=== PATIENT | male | born 1975 | race Caucasian/White ===

== ENCOUNTER 2017-03-05 23:12 | Emergency (ER) | payer OTHER ==
[~2017-03-05] VITALS: Ht 182.9 cm; Wt 88.0 kg
[2017-03-05 23:17] VITALS: BP 119/81; PULSE 96; RESP 20; TEMP 97.9; O2SAT 95
[2017-03-05] MEDS: RESP: ALBUTEROL 2.5 MG/IPRATROPIUM 0.5 MG NEB (SCH) INH (23:58)
[2017-03-05] MEDS ORDERED: VERA1TAB17 PO (23:59)
[2017-03-05] MEDS ORDERED: SPIRCAP INH (23:59)
[2017-03-05] MEDS ORDERED: IMIT50TA PO (23:59)
[2017-03-06] VITALS: O2SAT 96
[2017-03-06] MEDS ORDERED: predniSONE 50 MG TAB PO ONE
[2017-03-06 00:10] VITALS: BP 120/88; PULSE 85; RESP 22; O2SAT 97
--- NOTE | 2017-03-06 00:35 | RADHPO ---
EXAM DATE/TIME: 03/06/2017 00:26 [facility] COMPARISON: No previous studies available for comparison. INDICATIONS : Shortness of breath. MEDICAL HISTORY : None. SURGICAL HISTORY : None. ENCOUNTER: Initial ACUITY: 1 week PAIN SCORE: 0/10 LOCATION: Bilateral chest FINDINGS: A single view of the chest demonstrates the lungs to be symmetrically aerated without evidence of mas s, infiltrate or effusion. The cardiomediastinal contours are unremarkable. Osseous structures are intact. CONCLUSION: No acute disease. David Kennedy MD on March 06, 2017 at 0:33 Board Certified Radiologist. This report was verified electronically.
[2017-03-06 00:50] VITALS: BP 112/66; PULSE 98; RESP 20; O2SAT 97
[2017-03-06] MEDS ORDERED: MEDR4PAK PO ×2 (00:56→01:05)
[2017-03-06] MEDS ORDERED: ALBUAER3 INH ×2 (00:56→01:05)
--- NOTE | 2017-03-06 01:01 | PD ---
HPI Chief Complaint: Respiratory Symptoms Time Seen by Provider: 23:47 Travel History International Travel<30 days: No Contact w/Intl Traveler<30days: No Traveled to known affect area: No History of Present Illness HPI 41-year-old male presents to the emergency department for complaint of shortness of breath and wheezing. Patient has history of COPD. Patient is prescribed Spiriva for chronic management however does not have a rescue inhaler. Patient states his rescue inhaler is empty. Primary care provider did not refill his rescue inhaler. Patient denies fever chills productive cough chest pain palpitations of abdominal pain nausea vomiting referred neck jaw back shoulder arm pain. Patient states he has chronic cough. Patient has been diagnosed with COPD the past several years after multiple years of tobacco use and also chemical exposure and [place]. Patient denies other concerns or complaints. No report of orthopnea PND or peripheral edema also no long distance travel protracted bedrest her surgical procedure. PFSH Past Medical History Narrative Medical Anxiety SVT status post ablation COPD hiatal hernia migraines vasectomy appendectomy occasional alcohol use prior tobacco use; nursing notes reviewed Anxiety: Yes Heart Rhythm Problems: Yes (svts, pt had ablation) High Cholesterol: Yes COPD: Yes Hiatal Hernia: Yes (bilat hernia) Reproductive: Yes (vasectomy) Respiratory: Yes (copd) Migraines: Yes Influenza Vaccination: No Past Surgical History Appendectomy: Yes Social History Alcohol Use: Yes (occ) Tobacco Use: No Substance Use: No Allergies-Medications (Allergen,Severity, Reaction): Coded Allergies: Ephedrine (Verified Allergy, Intermediate, 03/05/17) palpitaions Zomig (Verified Allergy, Intermediate, Flushing, 03/05/17) Reported Meds & Prescriptions Reported Meds & Active Scripts Active Medrol Dosepak (Methylprednisolone) 4 Mg Dspk 4 Mg PO DIRECTED Per Pharmacist direction Proair Hfa 8.5 GM Inh (Albuterol Sulfate) 90 Mcg/Act Aer 2 Puff INH Q4-6H PRN 108 mcg/actuation Reported Imitrex (Sumatriptan Succinate) 50 Mg Tab 50 Mg PO ONCE PRN If a satisfactory response has not been obtained at 2 hours, a second dose may be administered Verapamil ER 24 HR (Verapamil HCl) 240 Mg Tab 240 Mg PO DAILY Spiriva Handihaler (Tiotropium Inh) 18 Mcg Cap 18 Mcg INH BID 1 capsule = 18 mcg Review of Systems Except as stated in HPI: all other systems reviewed are Neg General / Constitutional: No: Fever, Chills HENT: No: Congestion Cardiovascular: No: Chest Pain or Discomfort Respiratory: Positive: Cough, Shortness of Breath, Wheezing, No: Orthopnea, Hemoptysis, Pleuritic Pain Gastrointestinal: No: Nausea, Vomiting, Abdominal Pain Genitourinary: No: Decreased Urinary Output, Flank Pain Musculoskeletal: No: Myalgias, Arthralgias Skin: No Rash Neurologic: No: Weakness Psychiatric: No: Anxiety Hematologic/Lymphatic: No: Easy Bruising Physical Exam Narrative GENERAL: Well-developed well-nourished male in mild respiratory distress no accessory muscle use SKIN: Warm and dry. HEAD: Normocephalic. EYES: No scleral icterus. No injection or drainage. NECK: Supple, trachea midline. No JVD or lymphadenopathy. CARDIOVASCULAR: Regular rate and rhythm without murmurs, gallops, or rubs. RESPIRATORY: Breath sounds equal bilaterally diminished breath sounds with expiratory wheeze mild prolonged I:E ratio. No accessory muscle use. GASTROINTESTINAL: Abdomen soft, non-tender, nondistended. MUSCULOSKELETAL: No cyanosis, or edema. BACK: Nontender without obvious deformity. No CVA tenderness. Data Data Last Documented VS Vital Signs Date Time Temp Pulse Resp B/P Pulse Ox O2 Delivery O2 Flow Rate FiO2 03/06/17 01:17 92 20 116/70 98 03/06/17 00:50 Nasal Cannula 03/05/17 23:17 97.9 Orders Ecg Monitoring (03/05/17 23:51) Oximetry (03/05/17 23:51) Chest, Single Ap (03/05/17 23:51) Albuterol-Ipratropium Neb (Duoneb Neb) (03/06/17 00:00) Prednisone (Deltasone) (03/06/17 00:00) MDM Medical Decision Making Medical Screen Exam Complete: Yes Emergency Medical Condition: Yes Medical Record Reviewed: Yes Interpretation(s) Last Impressions Chest X-Ray 03/05/17 5901 Signed Impressions: Service Date/Time: Monday, March 06, 2017 00:26 - CONCLUSION: No acute disease. David Kennedy MD Vital Signs Date Time Temp Pulse Resp B/P Pulse Ox O2 Delivery O2 Flow Rate FiO2 03/06/17 00:50 98 20 112/66 97 Nasal Cannula 03/06/17 00:10 85 22 120/88 97 Room Air 03/06/17 00:00 96 Room Air 03/05/17 23:44 96 Room Air 03/05/17 23:17 97.9 96 20 119/81 95 Differential Diagnosis Exacerbation COPD, bronchitis, pneumonia, medication refill Narrative Course Patient provided prednisone 50 mg by mouth along with Alek castellanos 3 Chest x-ray reveals no acute process At 12:57 AM lung sounds are clear patient is stable for outpatient management; medication refill for albuterol provided as well as prescription for Medrol Dosepak Diagnosis Primary Impression: COPD exacerbation Additional Impression: Medication refill Referrals: Primary Care Physician call for appointment Patient Instructions: General Instructions Additional Instructions: Follow-up with your primary care provider Return to the emergency department for any concerns or change in condition May use acetaminophen/Tylenol as often as every 4 hours as needed for fever 100.4F or greater or for minor pain Use a rescue inhaler as prescribed as needed for wheezing or shortness of breath Complete course of steroid as prescribed Med/Other Pt SpecificInfo: Prescription(s) given Scripts Methylprednisolone Dosepak (Medrol Dosepak)4 Mg Dspk4 Mg PO DIRECTED #1 DSPK Ref 0 Per Pharmacist direction Prov:Claudia Gonzales MD 03/06/17 Albuterol 8.5 GM Inh (Proair Hfa 8.5 GM Inh)90 Mcg/Act Aer2 Puff INH Q4-6H PRN ( SHORTNESS OF BREATH) #1 INHALER Ref 0 108 mcg/actuation Prov:Claudia Gonzales MD 03/06/17 Disposition: 01 DISCHARGE HOME Condition: Stable Claudia Gonzales MD Mar 06, 2017 01:01
[2017-03-06 01:17] VITALS: BP 116/70
== END 2017-03-06 01:16 | disposition home or self-care (01) ==
LOC: PHED 23:12
DX: J44.1 Chronic obstructive pulmonary disease with (acute) exacerbation (principal); Z76.0 Encounter for issue of repeat prescription; E78.00 Pure hypercholesterolemia, unspecified
CPT/HCPCS: 71010; 94640; 94664; 99283; J7512

== ENCOUNTER 2017-05-27 03:50 | Emergency (ER) | payer OTHER ==
[~2017-05-27] VITALS: Ht 188 cm; Wt 85.3 kg
[~2017-05-27 03:50] MED LIST: ALBUAER3 INH; IMIT50TA PO; MEDR4PAK PO; SPIRCAP INH; VERA1TAB17 PO
[2017-05-27 03:57] VITALS: BP 114/77; PULSE 100; RESP 16; TEMP 98.7; O2SAT 97
[2017-05-27] MEDS ORDERED: SODIUM CHLOR 0.9% 1000 ML INJ 1,000 ML IV SCH (04:27)
[2017-05-27] MEDS ORDERED: SYMB160A INH (04:30)
[2017-05-27] MEDS ORDERED: SODIUM CHLORIDE 0.9% FLUSH 10 ML FLUSH IV FLUSH PRN (04:30)
[2017-05-27] MEDS ORDERED: VENTAER INH (04:30)
[2017-05-27] MEDS ORDERED: TIOT12.9 INH (04:30)
--- NOTE | 2017-05-27 04:31 | PD ---
HPI Chief Complaint: Flank/Kidney Pain Time Seen by Provider: 04:21 Travel History International Travel<30 days: No Contact w/Intl Traveler<30days: No Traveled to known affect area: No History of Present Illness HPI The patient is a 41-year-old male that complains of left flank pain that began at 7:00 yesterday morning. The pain got progressively worse. He describes the pain as sharp and throbbing. When he touches it or moves it can be a 10 over 10 but when he lies still it is only a 4. He denies any fever, nausea or vomiting. He does have a history of kidney stones. PFSH Past Medical History Anxiety: Yes Heart Rhythm Problems: Yes (svts, pt had ablation) High Cholesterol: Yes COPD: Yes Hiatal Hernia: Yes (bilat hernia) Reproductive: Yes (vasectomy) Respiratory: Yes (copd) Migraines: Yes Influenza Vaccination: No Past Surgical History Appendectomy: Yes Social History Alcohol Use: Yes (occ) Tobacco Use: No (vaporizer) Substance Use: No Allergies-Medications (Allergen,Severity, Reaction): Coded Allergies: Ephedrine (Verified Allergy, Intermediate, 05/27/17) palpitaions Zomig (Verified Allergy, Intermediate, Flushing, 05/27/17) Reported Meds & Prescriptions Reported Meds & Active Scripts Active Reported Symbicort Inh (Budesonide/Formoterol Fumarate) 160-4.5 Mcg/Act Aero 2 Puff INH DAILY Ventolin Hfa 18 GM Inh (Albuterol Sulfate) 90 Mcg/Act Aer 1 Puff INH Q4H PRN Spiriva Respimat Inh (Tiotropium Inh) 2.5 Mcg/Act Aero 2 Puff INH DAILY 2.5 mcg = 1 inhalation Imitrex (Sumatriptan Succinate) 50 Mg Tab 50 Mg PO ONCE PRN If a satisfactory response has not been obtained at 2 hours, a second dose may be administered Verapamil ER 24 HR (Verapamil HCl) 240 Mg Tab 240 Mg PO DAILY Review of Systems Except as stated in HPI: all other systems reviewed are Neg Physical Exam Narrative GENERAL: The patient is alert, oriented 3 in moderate apparent distress with his left flank pain. His vital signs show heart rate of 100 but are otherwise normal. SKIN: Focused skin assessment warm/dry. No skin rash is seen. HEAD: Atraumatic. Normocephalic. EYES: Pupils equal and round. No scleral icterus. No injection or drainage. ENT: No nasal bleeding or discharge. Mucous membranes pink and moist. NECK: Trachea midline. No JVD. CARDIOVASCULAR: Regular rate and rhythm. No murmur appreciated. RESPIRATORY: No accessory muscle use. Clear to auscultation. Breath sounds equal bilaterally. GASTROINTESTINAL: Abdomen soft, with exquisite tenderness to direct palpation over the left flank, nondistended. Hepatic and splenic margins not palpable. No guarding or rebound is present. MUSCULOSKELETAL: No obvious deformities. No clubbing. No cyanosis. No edema. NEUROLOGICAL: Awake and alert. No obvious cranial nerve deficits. Motor grossly within normal limits. Normal speech. PSYCHIATRIC: Appropriate mood and affect; insight and judgment normal. Data Data Last Documented VS Vital Signs Date Time Temp Pulse Resp B/P Pulse Ox O2 Delivery O2 Flow Rate FiO2 05/27/17 05:15 62 18 132/78 98 Room Air 05/27/17 03:57 98.7 Orders Complete Blood Count With Diff (05/27/17 04:27) Comprehensive Metabolic Panel (05/27/17 04:27) Lipase (05/27/17 04:27) Urinalysis - C+S If Indicated (05/27/17 04:27) Ct Abd/Pel W Iv Contrast(Rout) (05/27/17 04:27) Iv Access Insert/Monitor (05/27/17 04:27) Ecg Monitoring (05/27/17 04:27) Oximetry (05/27/17 04:27) Sodium Chlor 0.9% 1000 Ml Inj (Ns 1000 M (05/27/17 04:27) Sodium Chloride 0.9% Flush (Ns Flush) (05/27/17 04:30) Iohexol 350 Inj (Omnipaque 350 Inj) (05/27/17 04:45) Labs Laboratory Tests Test 05/27/17 04:39 White Blood Count 12.1 TH/MM3 Red Blood Count 4.58 MIL/MM3 Hemoglobin 14.4 GM/DL Hematocrit 43.4 % Mean Corpuscular Volume 94.7 FL Mean Corpuscular Hemoglobin 31.5 PG Mean Corpuscular Hemoglobin 33.2 % Concent Red Cell Distribution Width 12.4 % Platelet Count 264 TH/MM3 Mean Platelet Volume 7.7 FL Neutrophils (%) (Auto) 69.3 % Lymphocytes (%) (Auto) 21.4 % Monocytes (%) (Auto) 7.3 % Eosinophils (%) (Auto) 1.6 % Basophils (%) (Auto) 0.4 % Neutrophils # (Auto) 8.4 TH/MM3 Lymphocytes # (Auto) 2.6 TH/MM3 Monocytes # (Auto) 0.9 TH/MM3 Eosinophils # (Auto) 0.2 TH/MM3 Basophils # (Auto) 0.0 TH/MM3 CBC Comment DIFF FINAL Differential Comment Sodium Level 142 MEQ/L Potassium Level 3.8 MEQ/L Chloride Level 108 MEQ/L Carbon Dioxide Level 25.5 MEQ/L Anion Gap 9 MEQ/L Blood Urea Nitrogen 13 MG/DL Creatinine 1.00 MG/DL Estimat Glomerular Filtration 83 ML/MIN Rate Random Glucose 127 MG/DL Calcium Level 9.0 MG/DL Total Bilirubin 0.2 MG/DL Aspartate Amino Transf 10 U/L (AST/SGOT) Alanine Aminotransferase 21 U/L (ALT/SGPT) Alkaline Phosphatase 63 U/L Total Protein 7.2 GM/DL Albumin 3.8 GM/DL Lipase 133 U/L [facility] Medical Decision Making Medical Screen Exam Complete: Yes Emergency Medical Condition: Yes Medical Record Reviewed: Yes Interpretation(s) The CT abdomen/pelvis with IV contrast shows a solitary tiny nonobstructing calcified stone in the mid pole of the right kidney. There are no dilated loops of small or large bowel. The CBC shows a white count of 12,100 but is otherwise unremarkable. The complete metabolic profile shows a GFR of 83 but is otherwise normal. The lipase is normal. Differential Diagnosis Musculoskeletal pain, rib pain, diverticulitis, urinary stone Narrative Course The patient is not nauseated, he is exquisitely tender with light touch over the muscles and ribs on the left chest wall and left flank. He has been coughing a lot lately and states that this may be from the coughing. He has not had any fever and his abdominal CAT scan does not show any cause for abdominal pain. It does not show any stone. Procedures EKG Prior to Arrival: No EKG Not Completed: EKG Not Medically Necessary Diagnosis Primary Impression: Musculoskeletal chest pain Additional Instructions: This appears to be pain from the muscles and bones outside of the abdomen. The coughing may have set this off. Motrin is taken one tablet 3 times daily. Med/Other Pt SpecificInfo: Prescription(s) given Scripts Ibuprofen 600 Mg [id number] Mg PO TID #44 TAB Ref 0 Prov:Chay Pérez MD 05/27/17 Disposition: 01 DISCHARGE HOME Condition: Stable Chay Pérez MD May 27, 2017 04:31
[2017-05-27] MEDS ORDERED: IOHEXOL 350 MG/ML 10 ML VIAL (for RAD DIAG) IV ONE (04:45)
[2017-05-27 04:47] LABS: AUTOMATED NEUTROPHIL # 8.4 TH/MM3 (1.8-7.7); BASOPHIL % 0.4 % (0.0-2.0); EOSINOPHIL # 0.2 TH/MM3 (0-0.4); EOSINOPHIL % 1.6 % (0.0-4.0); HEMATOCRIT 43.4 % (39.0-51.0); LYMPH % 21.4 % (9.0-44.0); LYMPHOCYTE # 2.6 TH/MM3 (1.0-4.8); MEAN CELL VOLUME 94.7 FL (80.0-100.0); MEAN CORPUSCULAR HEMOGLOBIN 31.5 PG (27.0-34.0); MEAN CORPUSCULAR HGB CONC 33.2 % (32.0-36.0); MONO % 7.3 % (0.0-8.0); NEUT % 69.3 % (16.0-70.0); PLATELET COUNT 264 TH/MM3 (150-450); RED BLOOD COUNT 4.58 MIL/MM3 (4.50-5.90); RED CELL DISTRIBUTION WIDTH 12.4 % (11.6-17.2); WHITE BLOOD COUNT 12.1 TH/MM3 (4.0-11.0)
[2017-05-27 04:48] LABS: HEMO FLAGS DIFF FINAL
[2017-05-27 04:56] LABS: CHLORIDE 108 MEQ/L (98-107); POTASSIUM 3.8 MEQ/L (3.5-5.1); SODIUM (NA) 142 MEQ/L (136-145)
[2017-05-27 05:00] LABS: ANION GAP 9 MEQ/L (5-15); BICARBONATE 25.5 MEQ/L (21.0-32.0); BLOOD UREA NITROGEN 13 MG/DL (7-18)
[2017-05-27 05:02] LABS: ALT (GPT) 21 U/L (12-78)
[2017-05-27 05:03] LABS: AST (GOT) 10 U/L (15-37); GLOMERULAR FILTRATION RATE 83 ML/MIN (>89)
[2017-05-27 05:04] LABS: TOTAL BILIRUBIN ADULT 0.2 MG/DL (0.2-1.0)
[2017-05-27 05:05] LABS: ALKALINE PHOSPHATASE 63 U/L (45-117)
[2017-05-27 05:15] VITALS: BP 132/78; PULSE 62; RESP 18; O2SAT 98
--- NOTE | 2017-05-27 06:03 | RADRPT ---
EXAM DATE/TIME: 05/27/2017 04:34 [facility] COMPARISON: No previous studies available for comparison. INDICATIONS : Left flank pain. IV CONTRAST: 100 cc Omnipaque 350 (iohexol) IV ORAL CONTRAST: No oral contrast ingested. RADIATION DOSE: 12.64 CTDIvol (mGy) MEDICAL HISTORY : Hernia, inguinal. SURGICAL HISTORY : Inguinal hernia repair. Appendectomy. ENCOUNTER: Initial ACUITY: 1 day PAIN SCALE: 8/10 LOCATION: Left flank TECHNIQUE: Volumetric scanning of the abdomen and pelvis was performed. Using automated exposure control and ad justment of the mA and/or kV according to patient size, radiation dose was kept as low as reasonably achievable to obtain optimal diagnostic quality images. DICOM format image data is available electro nically for review and comparison. FINDINGS: LOWER LUNGS: The visualized lower lungs are clear. LIVER: Homogeneous density without lesion. There is no dilation of the biliary tree. Contracted gallbladde r. No calcified gallstones. SPLEEN: Normal size without lesion. PANCREAS: Within normal limits. KIDNEYS: There is a solitary tiny 2 mm calcification in the midpole collecting system of the right kidney with out evidence of hydronephrosis right ureter. No calcifications seen within system on the left side. No hydronephrosis. There is a prominent parapelvic cyst lower pole left kidney which measures 3.3 c m. Parenchymal cyst midpole right kidney measuring 1.5 cm. ADRENAL GLANDS: Within normal limits. VASCULAR: There is no aortic aneurysm. BOWEL/MESENTERY: No dilated loops of small or large bowel. ABDOMINAL WALL: Metallic anchor screws lower anterior pelvis. No ventral hernia. RETROPERITONEUM: There is no lymphadenopathy. BLADDER: No wall thickening or mass. REPRODUCTIVE: Within normal limits. INGUINAL: There is no lymphadenopathy or hernia. MUSCULOSKELETAL: Within normal limits for patient age. CONCLUSION: 1. Solitary tiny nonobstructing calcified stone mid pole right kidney. 2. No dilated loops of small or large bowel. George Birmingham MD on May 27, 2017 at 5:56 Board Certified Radiologist. This report was verified electronically.
[2017-05-27] MEDS ORDERED: IBUP-232 PO (06:29)
[2017-05-27] MEDS ORDERED: KETOROLAC TROMETHAMINE 60 MG/2 ML (IM) VIAL IVP ONE (06:30)
[2017-05-27 06:40] VITALS: BP 120/76
== END 2017-05-27 06:48 | disposition home or self-care (01) ==
LOC: PHED 03:50
DX: R07.89 Other chest pain (principal); R05 Cough; E78.00 Pure hypercholesterolemia, unspecified; Z87.442 Personal history of urinary calculi; Z86.59 Personal history of other mental and behavioral disorders; Z86.79 Personal history of other diseases of the circulatory system; Z87.09 Personal history of other diseases of the respiratory system
CPT/HCPCS: 74177; 80053; 83690; 85025; 96361; 96374; 99285; J1885; J7030; Q9967

== ENCOUNTER 2017-07-15 10:42 | Emergency (ER) | payer OTHER ==
[~2017-07-15] VITALS: Ht 188 cm; Wt 86.4 kg
[~2017-07-15 10:42] MED LIST changes: -ALBUAER3 INH; +IBUP-232 PO; -MEDR4PAK PO; -SPIRCAP INH; +SYMB160A INH; +TIOT12.9 INH; +VENTAER INH
[2017-07-15 10:53] VITALS: BP 121/71; PULSE 92; RESP 16; TEMP 97.8; O2SAT 97
--- NOTE | 2017-07-15 11:07 | PD ---
HPI Chief Complaint: Injury Time Seen by Provider: 11:04 Travel History International Travel<30 days: No Contact w/Intl Traveler<30days: No Traveled to known affect area: No History of Present Illness HPI 41-year-old male with history of chronic ankle pains from previous injuries in the right ankle, presents to the ER today because he states that he was out delivering pizzas a few days ago when he felt a twinge of pain in his right ankle around the lateral malleolus area. He states since then it has been hurting and he has an 8 out of 10 pain now especially with walking. He denies any other issues or injuries. Modifying Factors: None Associated Signs & Symptoms: Right ankle pain, injury Risk Factors: None PFSH Past Medical History Anxiety: Yes Heart Rhythm Problems: Yes (svts, pt had ablation) High Cholesterol: Yes COPD: Yes Hiatal Hernia: Yes (bilat hernia) Reproductive: Yes (vasectomy) Respiratory: Yes (copd) Migraines: Yes Past Surgical History Appendectomy: Yes Social History Alcohol Use: Yes (occ) Tobacco Use: No (vaporizer) Substance Use: No Allergies-Medications (Allergen,Severity, Reaction): Coded Allergies: ephedrine (Unverified Allergy, Intermediate, 07/15/17) palpitaions zolmitriptan (Unverified Allergy, Intermediate, Flushing, 07/15/17) Reported Meds & Prescriptions Reported Meds & Active Scripts Active Motrin Ib (Ibuprofen) 200 Mg Tablet 200 Mg PO QID PRN Reported Symbicort Inh (Budesonide/Formoterol Fumarate) 160-4.5 Mcg/Act Aero 2 Puff INH DAILY Ventolin Hfa 18 GM Inh (Albuterol Sulfate) 90 Mcg/Act Aer 1 Puff INH Q4H PRN Spiriva Respimat Inh (Tiotropium Inh) 2.5 Mcg/Act Aero 2 Puff INH DAILY 2.5 mcg = 1 inhalation Review of Systems Except as stated in HPI: all other systems reviewed are Neg Physical Exam Narrative GENERAL: Well-nourished, well-developed middle age white male patient in mild distress. SKIN: Focused skin assessment warm/dry. HEAD: Normocephalic. EYES: No scleral icterus. No injection or drainage. NECK: Supple, trachea midline. MUSCULOSKELETAL: No cyanosis, or edema. EXTREMITIES: No clubbing, cyanosis, or edema. No joint tenderness, effusion, or edema noted. There is notable tenderness to palpation in the right lateral malleolus area. No obvious deformities. No midfoot tenderness. Data Data Last Documented VS Vital Signs Date Time Temp Pulse Resp B/P Pulse Ox O2 Delivery O2 Flow Rate FiO2 07/15/17 10:53 97.8 92 16 121/71 97 Orders Ankle, Complete ([id number]) (07/15/17 11:04) Ibuprofen (Motrin) (07/15/17 11:15) Splint Or Brace Apply/Monitor (07/15/17 11:45) Crutches (07/15/17 11:45) MDM Medical Decision Making Medical Screen Exam Complete: Yes Emergency Medical Condition: Yes Medical Record Reviewed: Yes Differential Diagnosis Right ankle injurysprain versus fractures versus arthritis Narrative Course X-ray does not show any signs of acute fractures or dislocations. At this point , my plan would be to have him stay off the ankle, Lyle and crutches, and have him follow-up with primary care physician as needed. Return for any worsening in pain. Ice and elevate. The plan was discussed with the patient and he states understanding. Diagnosis Primary Impression: Right ankle sprain Med/Other Pt SpecificInfo: Prescription(s) given Scripts Ibuprofen (Motrin Ib)200 Mg [id number] Mg PO QID PRN (PAIN SCALE 1 TO 10) #21 Prov:Werner Pang MD 07/15/17 Disposition: 01 DISCHARGE HOME Condition: Stable Werner Pang MD Jul 15, 2017 11:06
[2017-07-15] MEDS ORDERED: IBUPROFEN 600 MG TAB PO ONE (11:15)
[2017-07-15] MEDS ORDERED: IBUP-1129 PO (11:45)
--- NOTE | 2017-07-15 11:54 | RADRPT ---
EXAM DATE/TIME: 07/15/2017 11:16 [facility] COMPARISON: No previous studies available for comparison. INDICATIONS : Right lateral ankle pain with no recent injury. Patient states he has been diagnosed with a chronic s prain in the right ankle in the past. MEDICAL HISTORY : Hypercholesterolemia. Chronic obstructive pulmonary disease. Hiatal hernia. Scoliosis. DDD. SURGICAL HISTORY : Appendectomy. Hernia repair. Cardiac ablation. Vasectomy. ENCOUNTER: Initial ACUITY: 3 days PAIN SCORE: 8/10 LOCATION: Right lateral ankle FINDINGS: Three view exam was performed of the right ankle. The bony structures are in normal alignment. No e vidence of fracture, dislocation, or soft tissue swelling. The ankle mortise is intact. No radiopaq ue foreign bodies are seen. Bony mineralization is normal. CONCLUSION: Unremarkable examination of the right ankle. Familia Maier MD on July 15, 2017 at 11:52 Board Certified Radiologist. This report was verified electronically.
== END 2017-07-15 12:03 | disposition home or self-care (01) ==
LOC: PHEFT 10:42
DX: S93.401A Sprain of unspecified ligament of right ankle, initial encounter (principal); X58.XXXA Exposure to other specified factors, initial encounter; Y93.89 Activity, other specified; Y92.9 Unspecified place or not applicable; Y99.0 Civilian activity done for income or pay; G89.29 Other chronic pain; Z87.828 Personal history of other (healed) physical injury and trauma; J44.9 Chronic obstructive pulmonary disease, unspecified; E78.00 Pure hypercholesterolemia, unspecified; K44.9 Diaphragmatic hernia without obstruction or gangrene
CPT/HCPCS: 73610; 99283; E0113; L1906